=== PATIENT | male | born 1985 | race Hispanic/Latino ===

== ENCOUNTER 2016-08-04 07:50 | Emergency (ER) | payer OTHER ==
[~2016-08-04] VITALS: Ht 177.8 cm; Wt 89.8 kg
[~2016-08-04 07:50] MED LIST: ALLOPURINOL100 MG PO; AMOXICILLIN500 M3 PO; AMOXICILLIN875 M1 PO; ANTIVERT 25 MG25 MG PO; COLCHICINE0.6 M1 AD; INDOMETHACIN50 MG PO; MEDROL DOSEPAK1 PAC PO; NAPROXEN500 MG PO; NORCO 325 MG-51 TAB PO; PERCOCET 325 MG1 TA2 PO; PREDNISONE20 M1 PO; PROAIR HFA8.5 GM INH; TESSALON PERLE100 M1 PO; VICODIN5-300 PO; benadryl/lido/maalox PO
[2016-08-04 07:56] VITALS: BP 141/92
--- NOTE | 2016-08-04 08:18 | ED EAR COMPLAINT ---
History of Present Illness General Chief Complaint: Ear Complaints Stated Complaint: R EAR PAIN Source: patient, family, old records Exam Limitations: no limitations Vital Signs & Intake/Output Vital Signs & Intake/Output Vital Signs Date Time Temp Pulse Resp B/P Pulse O2 O2 Flow FiO2 Ox Delivery Rate 08/04 0836 97.2 08/04 0756 97.2 93 18 141/92 98 Room Air Allergies Coded Allergies: NO KNOWN ALLERGIES (11/04/15) Reconcile Medications Acetaminophen/Hydrocodone Bi (Dysart 325 MG-5 MG) 1 TAB TAB 1 TAB PO Q6HR PRN BREAKTHROUGH PAIN Albuterol Sulfate (Proair Hfa) 8.5 GM HFA.AER.AD 2-4 PUF INH Q4-6 PRN PRN shortness of breath Allopurinol 100 MG TAB 1 TAB PO DAILY PRN GOUT Amoxicillin 875 MG TABLET 1 TAB PO BID sinusitis Amoxicillin 875 MG TABLET 1 TAB PO BID sinusitis, otitis media Amoxicillin 500 MG TABLET 2 TAB PO DAILY STREP THROAT [benadryl/lido/maalox] 15 ML ORAL.SUSP 5 ML PO TID PRN THROAT PAIN SWISH AND SWALLOW 1/3 BENADRYL 1/3 MAALOX 1/3 LIDOCAINE Benzonatate (Tessalon Perle) 100 MG CAPSULE 1 CAP PO TIDPRN cough Colchicine 0.6 MG CAP 1 TAB AD DAILY PRN GOUT 2 TABS PO AT FIRST SIGHT OF PAIN, THEN 1 TAB 1 HOUR LATER, NO TO EXCEED 3 TABS IN ONE HOUR THEN ONE TAB BID NO TO EXCEED TWO TABS IN ONE DAY AFTER DAY ONE HYDROCODONE/ACETAMINOPHEN (Hydrocodon-Acetaminophen 5-325) 1 TAB TAB 1 TAB PO Q6H PRN pain may cause drowsiness HYDROCODONE/ACETAMINOPHEN (Hydrocodon-Acetaminophen 5-325) 1 TAB TAB 1 TAB PO TID PAIN Ibuprofen 800 MG TABLET 1 TAB PO Q6PRN PRN pain Indomethacin 50 MG CAPSULE 1 CAP PO TID PRN PAIN with food Indomethacin 50 MG CAP 1 CAP PO TID PRN gout with food Methylprednisolone. (Medrol) 1 PAC PAC 1 PAC PO TAPER gout Naproxen 500 MG TAB 1 TAB PO BID GOUT Naproxen 500 MG TAB 1 TAB PO BID INFLAMMATION OXYCODONE HCL/ACETAMINOPHEN (Percocet 5-325 MG Tablet) 325 MG/5 MG TAB 1-2 TAB PO Q4-6 PRN PRN PAIN Oxymetazoline HCl (Afrin) 0.05 % SPRAY 2 SPRAY NASB BID sinusitis Prednisone 20 MG TABLET 1 TAB PO BID sinusitis Sulfacetamide Sodium (Bleph-10) 10 % DROPS 2 GTT OPH 4 TIMES/DAY conjunctivitis Tramadol HCl (Ultram) 50 MG TABLET 1-2 TAB PO Q6PRN PRN severe pain Triage Note: PT STATES HE THINKS HE HAS AN EAR INFECTION. PT STATES HIS RIGHT EAR HAS BEEN BOTHERING HIM SINCE. FRIDAY. PT STATES HE HAS SINUS PAIN AND HE THINKS HE HAS PINK EYE IN HIS RIGHT EYE. Triage Nurses Notes Reviewed? yes Onset: 4 days Duration: day(s):, constant, continues in ED, getting worse Timing: recent history Injury Environment: home Severity: severe No Modifying Factors: none HPI: 4 days prior to admission patient complains of nasal congestion decreased hearing in right ear right ear pain right eye discharge sore throat. Denies fever chills nausea vomiting diarrhea abdominal pain chest pain shortness of breath headache dysuria rash bleeding. Past History Travel History Traveled to [place] past 21 day No Medical History Any Pertinent Medical History? see below for history Neurological: NONE EENT: NONE Cardiovascular: NONE Respiratory: NONE Gastrointestinal: pancreatitis Hepatic: NONE Renal: KIDNEY STONES Musculoskeletal: gout Psychiatric: NONE Endocrine: NONE Blood Disorders: NONE Cancer(s): NONE POST ACUTE CARE NURSE/Reproductive: NONE Surgical History Surgical History: non-contributory Psychosocial History What is your primary language Uzbek Tobacco Use: Current Daily Use Daily Tobacco Use Amount/Type: =< 4 Cigarettes daily ETOH Use: denies use Illicit Drug Use: denies illicit drug use Family History Hx Contributory? No Review of Systems Review of Systems Constitutional: Reports: see HPI, malaise. EENTM: Reports: see HPI, eye drainage, ear pain, hearing changes, nasal congestion, throat pain. Respiratory: Reports: no symptoms. Cardiovascular: Reports: no symptoms. GI: Reports: no symptoms. Genitourinary: Reports: no symptoms. Musculoskeletal: Reports: no symptoms. Skin: Reports: no symptoms. Neurological/Psychological: Reports: no symptoms. Hematologic/Endocrine: Reports: no symptoms. Immunologic/Allergic: Reports: no symptoms. All Other Systems: Reviewed and Negative Physical Exam Physical Exam General Appearance: well developed/nourished, alert, awake, anxious, moderate distress Head: atraumatic, normal appearance Eyes: Left: normal appearance. Right: other (corneal injection). Bilateral: PERRL, EOMI. Ears: Left: canal normal, Tympanic normal. Right: Tympanic red, Tympanic bulging. Nose: discharge, sinus tenderness Mouth/Throat: pharynx swelling Neck: normal inspection, supple, full range of motion, lymphadenopathy (R), lymphadenopathy (L) Cardiovascular/Respiratory: normal breath sounds, normal peripheral pulses, regular rate/rhythm, no respiratory distress Back: normal inspection, normal range of motion, no vertebral tenderness Neurologic/Psych: no motor/sensory deficits, awake, alert, oriented x 3, normal gait, normal mood/affect, customer care specialist II-XII nml as tested Skin: intact, normal color, warm/dry Progress Differential Diagnoses I considered the following diagnoses in my evaluation of the patient: Otitis media otitis externa sinusitis Plan of Care: Current Medications Sig/Gerhard Start time Last Medication Dose Stop Time Status Admin Amoxicillin 750 MG ONCE ONE 08/04 829 AC (Amoxil) 08/04 830 Ibuprofen 800 MG ONCE ONE 08/04 829 AC (Motrin) 08/04 830 Oxymetazoline HCl 2 SPRAY ONCE ONE 08/04 829 AC (Afrin) 08/04 830 Initial ED EKG: none Departure Departure Time of Disposition: 818 Disposition: HOME OR SELF CARE Condition: Stable Clinical Impression Primary Impression: Otitis media Qualifiers: Otitis media type: suppurative Laterality: right Chronicity: acute Recurrence: not specified as recurrent Spontaneous tympanic membrane rupture: without spontaneous rupture Qualified Code: H66.001 - Acute suppurative otitis media without spontaneous rupture of ear drum, right ear Secondary Impressions: Conjunctivitis Qualifiers: Conjunctivitis type: acute Acute conjunctivitis type: unspecified Laterality: right Qualified Code: H10.31 - Unspecified acute conjunctivitis, right eye Sinusitis, acute Qualifiers: Sinusitis location: unspecified location Recurrence: not specified as recurrent Qualified Code: J01.90 - Acute sinusitis, unspecified Referrals: PATIENT HAS NO PRIMARY CARE DR (PCP/Family) Departure Forms: Customer Survey General Discharge Information Prescriptions: Current Visit Scripts Amoxicillin 1 TAB PO BID #20 TAB Ibuprofen 1 TAB PO Q6PRN PRN pain #50 TAB Tramadol HCl (Ultram) 1-2 TAB PO Q6PRN PRN severe pain #30 TAB Sulfacetamide Sodium (Bleph-10) 2 GTT OPH 4 TIMES/DAY #5 ML Oxymetazoline HCl (Afrin) 2 SPRAY NASB BID #30 ML
[2016-08-04] MEDS ORDERED: IBUPROFEN800 M1 PO (08:22)
[2016-08-04] MEDS ORDERED: BLEPH-105 ML OPH (08:22)
[2016-08-04] MEDS ORDERED: ULTRAM50 M1 PO (08:22)
[2016-08-04] MEDS ORDERED: AMOXICILLIN875 M1 PO (08:22)
[2016-08-04] MEDS ORDERED: AFRIN30 ML NASB (08:22)
== END 2016-08-04 08:37 ==
LOC: ERH 07:50
DX: H66.91 Otitis media, unspecified, right ear (principal); H10.9 Unspecified conjunctivitis; J32.9 Chronic sinusitis, unspecified; F17.210 Nicotine dependence, cigarettes, uncomplicated

== ENCOUNTER 2016-08-24 19:44 | Emergency (ER) | payer OTHER ==
[~2016-08-24] VITALS: Ht 177.8 cm; Wt 95.3 kg
[~2016-08-24 19:44] MED LIST changes: +AFRIN30 ML NASB; +BLEPH-105 ML OPH; +IBUPROFEN800 M1 PO; +ULTRAM50 M1 PO
[2016-08-24 19:51] VITALS: BP 130/86
--- NOTE | 2016-08-24 20:18 | ED GI/GU/ABDOMINAL COMPLAINT ---
History of Present Illness General Chief Complaint: General Adult Stated Complaint: PT IS HAVING PAIN WT TO [facility] SAID? KIDNEYSTONE Source: patient, old records Exam Limitations: no limitations Vital Signs & Intake/Output Vital Signs & Intake/Output Vital Signs Date Time Temp Pulse Resp B/P Pulse O2 O2 Flow FiO2 Ox Delivery Rate 08/24 1950 97.9 79 16 130/86 97 Room Air Allergies Coded Allergies: NO KNOWN ALLERGIES (11/04/15) Reconcile Medications No Known Home Medications Triage Note: PT TO TRIAGE FOR C/O R FLANK PAIN 03/11, N/V SINCE YESTERDAY. HX OF KIDNEY STONES. PT WENT TO [facility] THIS MORNING, US AND XRAY WAS DONE BUT PT NOT SURE IF THEY FIND ANY KIDNEY STONES. PT WAS DC WITH RX FOR KETOROLAC. PT HERE FOR SECOND OPINION. Triage Nurses Notes Reviewed? yes HPI: Patient is a 31 year old male presents complaining of right upper abdominal pain radiating to RLQ and right back. Pain sudden onset at 0500 this morning. Pain is a sharp pain, currently severe. Patient was seen at [facility] this morning had: RUQ and renal ultrasound, labs, urinalysis. Patient was diagnosed with likely kidney stone and discharged on Toradol. Patient tried to take a dose at 10 am but vomited it up. 6 episodes of vomiting today. Patient has history of kidney stones, but they have always been left sided. (JOSIAS CANTU) Past History Travel History Traveled to [place] past 21 day No Medical History Any Pertinent Medical History? see below for history Neurological: NONE EENT: NONE Cardiovascular: NONE Respiratory: NONE Gastrointestinal: pancreatitis Hepatic: NONE Renal: KIDNEY STONES Musculoskeletal: gout Psychiatric: NONE Endocrine: NONE Blood Disorders: NONE Cancer(s): NONE MANAGER HI/Reproductive: NONE Surgical History Surgical History: non-contributory Psychosocial History What is your primary language Sami Tobacco Use: Current Daily Use Daily Tobacco Use Amount/Type: => 5 Cigarettes daily Family History Hx Contributory? No (JOSIAS CANTU) Review of Systems Review of Systems Constitutional: Denies: chills, fever. EENTM: Reports: no symptoms. Respiratory: Denies: cough, short of breath. Cardiovascular: Denies: chest pain. GI: Reports: see HPI. Genitourinary: Reports: see HPI. Musculoskeletal: Reports: back pain. Skin: Reports: no symptoms. Neurological/Psychological: Reports: no symptoms. Hematologic/Endocrine: Reports: no symptoms. Immunologic/Allergic: Reports: no symptoms. (JOSIAS CANTU) Physical Exam Physical Exam General Appearance: well developed/nourished, alert, awake Head: atraumatic, normal appearance Eyes: Bilateral: normal appearance, PERRL, EOMI. Ears, Nose, Throat, Mouth: hearing grossly normal, moist mucous membrane Neck: normal inspection, supple, full range of motion Respiratory: normal breath sounds, chest non-tender, no respiratory distress, lungs clear Cardiovascular: regular rate/rhythm Gastrointestinal: normal bowel sounds, soft, diffuse right-sided abdominal tenderness Back: normal inspection, normal range of motion, right CVA tenderness Extremities: normal range of motion Neurologic/Psych: no motor/sensory deficits, awake, alert, oriented x 3, normal gait, normal mood/affect Skin: intact, normal color, warm/dry Core Measures ACS in differential dx? No Severe Sepsis Present: No Septic Shock Present: No (JOSIAS CANTU) Progress Differential Diagnosis: biliary colic, cholecystitis, diverticulitis, pyelonephritis, ureterolithiasis, UTI/pyelo Plan of Care: Orders Procedure Date/time Status URINALYSIS 08/24 1957 Complete Laboratory Tests 08/24/162002: Urine Color YEL, Urine Clarity HAZY H, Urine pH 6.0, Ur Specific [place] 1.025, Urine Protein TRACE H, Urine Ketones TRACE H, Urine Nitrite NEG, Urine Bilirubin NEG, Urine Urobilinogen 0.2, Ur Leukocyte Esterase NEG, Ur Microscopic SEDIMENT EXAMINED, Urine RBC 25-50 H, Urine WBC 3-5 H, Ur Epithelial Cells RARE, Hyaline Casts RARE H, Urine Mucus MANY H, Urine Hemoglobin LARGE H, Urine Glucose NEG Patient's pain significantly improved after Toradol and Dilaudid. Results of CT scan discussed with patient. Patient had blood work done at [facility] this morning. Further labs deferred. Patient nontoxic appearing, appears stable to follow up with his urologist, Dr. Valdes, this upcoming week for further evaluation. (JOSIAS CANTU) Diagnostic Imaging: Viewed by Me: CT Scan. Discussed w/RAD: CT Scan. Radiology Impression: PATIENT: WILBERTO IZQUIERDO PRESENT AGE: 31 PATIENT ACCOUNT NO: [id number] : 83 LOCATION: [facility] ORDERING PHYSICIAN: JOSIAS BROWN SERVICE DATE: 08/24/16 EXAM TYPE: CAT - CT ABD & PELVIS W/O IV CONTRAS EXAMINATION: CT ABDOMEN AND PELVIS WITHOUT CONTRAST CLINICAL INFORMATION: Right flank pain. Renal colic. Hematuria. COMPARISON: Multiple priors, most recent CT abdomen/pelvis dated 09/04/2014. TECHNIQUE: Multidetector volumetric imaging was performed from the superior aspect of the liver through the pubic symphysis. Sagittal and coronal reformatted images were obtained on the technologist's workstation. DLP: 348.06 mGy-cm. FINDINGS: LUNG BASES: The visualized lung bases are unremarkable. PERITONEAL CAVITY: No intraperitoneal free air or free fluid. LIVER, GALLBLADDER , AND BILIARY TREE: The liver is normal in size, shape, and attenuation. No focal hepatic lesion or biliary ductal dilatation is present. The gallbladder is unremarkable with no evidence of radiopaque gallstones, gallbladder wall thickening, or obvious pericholecystic inflammatory changes. PANCREAS: Unremarkable. SPLEEN: Unremarkable. ADRENAL GLANDS: Unremarkable. KIDNEYS AND URETERS: The kidneys are normal in size, shape, and attenuation. There is a 2 mm calcification within the proximal right ureter. There is mild right-sided hydronephrosis and perinephric fat stranding. There is no left-sided hydronephrosis or nephrolithiasis. BLADDER: Unremarkable. GASTROINTESTINAL TRACT : No large or small bowel obstruction. Normal appendix. ABDOMINAL WALL: No significant hernia is appreciated. LYMPH NODES: Normal. VASCULAR: No abdominal aortic dilatation. The IVC is unremarkable. PELVIC VISCERA: Unremarkable. OSSEOUS STRUCTURES: No lytic or blastic osseous lesion. IMPRESSION: 1. A 2 mm stone within the proximal right ureter. Mild right-sided hydronephrosis and perinephric fat stranding. No additional nephrolithiasis. 2. No large or small bowel obstruction. Normal appendix. DICTATED BY: ISIDRA JOSHUA MD DATE/TIME DICTATED:08/24/162051 POWER SCREWDRIVER OPERATOR:NATALYA DATE/TIME TRANSCRIBED:2051 CONFIDENTIAL, DO NOT COPY WITHOUT APPROPRIATE AUTHORIZATION. < Electronically signed in Other Vendor System> SIGNED BY: ISIDRA JOSHUA MD 08/24/162107 Initial ED EKG: none (TERRELL BROWN,JOSIAS) Departure Departure Time of Disposition: 2114 Disposition: HOME OR SELF CARE Condition: Stable Clinical Impression Primary Impression: Renal colic on right side Referrals: PATIENT HAS NO PRIMARY CARE DR (PCP/Family) ERASTO VALDES MD Additional Instructions: Follow-up with Dr. Valdes (urologist) this upcoming week for further evaluation. Call on Friday for appointment. Return to the emergency department if unable to say hydrated, fevers, pain uncontrollable, unable to urinate, or worsening of symptoms. Continue taking the Toradol as previously directed. Percocet as directed for severe pain that is not controlled with Toradol. Departure Forms: Customer Survey General Discharge Information Prescriptions: Current Visit Scripts No Known Home Medications (JOSIAS CANTU) PA/DIRECTOR OF EMPLOYEE DEVELOPMENT Co-Sign Statement Statement: ED Attending supervision documentation- [] I saw and evaluated the patient. I have also reviewed all the pertinent lab results and diagnostic results. I agree with the findings and the plan of care as documented in the PA's/DIRECTOR OF EMPLOYEE DEVELOPMENT's documentation. x I have reviewed the ED Record and agree with the PA's/DIRECTOR OF EMPLOYEE DEVELOPMENT's documentation. [] Additions or exceptions (if any) to the PAs/DIRECTOR OF EMPLOYEE DEVELOPMENT's note and plan are summarized below: [] (DONTA DOMÍNGUEZ,ZAINAB)
--- NOTE | 2016-08-24 21:08 | CT SCAN REPORT ---
EXAMINATION: CT ABDOMEN AND PELVIS WITHOUT CONTRAST CLINICAL INFORMATION: Right flank pain. Renal colic. Hematuria. COMPARISON: Multiple priors, most recent CT abdomen/pelvis dated 09/04/2014. TECHNIQUE: Multidetector volumetric imaging was performed from the superior aspect of the liver through the pubic symphysis. Sagittal and coronal reformatted images were obtained on the technologist's workstation. DLP: 348.06 mGy-cm. FINDINGS: LUNG BASES: The visualized lung bases are unremarkable. PERITONEAL CAVITY: No intraperitoneal free air or free fluid. LIVER, GALLBLADDER, AND BILIARY TREE: The liver is normal in size, shape, and attenuation. No focal hepatic lesion or biliary ductal dilatation is present. The gallbladder is unremarkable with no evidence of radiopaque gallstones, gallbladder wall thickening, or obvious pericholecystic inflammatory changes. PANCREAS: Unremarkable. SPLEEN: Unremarkable. ADRENAL GLANDS: Unremarkable. KIDNEYS AND URETERS: The kidneys are normal in size, shape, and attenuation. There is a 2 mm calcification within the proximal right ureter. There is mild right-sided hydronephrosis and perinephric fat stranding. There is no left-sided hydronephrosis or nephrolithiasis. BLADDER: Unremarkable. GASTROINTESTINAL TRACT: No large or small bowel obstruction. Normal appendix. ABDOMINAL WALL: No significant hernia is appreciated. LYMPH NODES: Normal. VASCULAR: No abdominal aortic dilatation. The IVC is unremarkable. PELVIC VISCERA: Unremarkable. OSSEOUS STRUCTURES: No lytic or blastic osseous lesion. IMPRESSION: 1. A 2 mm stone within the proximal right ureter. Mild right-sided hydronephrosis and perinephric fat stranding. No additional nephrolithiasis. 2. No large or small bowel obstruction. Normal appendix.
[2016-08-24] MEDS ORDERED: ZOFRAN ODT4 M1 SL (21:17)
[2016-08-24] MEDS ORDERED: PERCOCET 5-3251 EACH PO (21:17)
== END 2016-08-24 21:45 ==
LOC: ERH 19:44
DX: N23 Unspecified renal colic (principal)
CPT/HCPCS: 74176; 81001; 96374; 96375; J2405

== ENCOUNTER 2016-09-02 18:37 | Emergency (ER) | payer OTHER ==
[~2016-09-02 18:37] MED LIST changes: +PERCOCET 5-3251 EACH PO; +ZOFRAN ODT4 M1 SL
[2016-09-02 19:04] VITALS: BP 144/96
[2016-09-02 19:15] LABS: ABSOLUTE BASOPHIL COUNT 0.1 /CUMM (0.0-0.2); ABSOLUTE EOSINOPHIL COUNT 0.1 /CUMM (0.0-0.7); ABSOLUTE GRANULOCYTE CT 5.2 /CUMM (1.4-6.5); ABSOLUTE LYMPH COUNT 2.2 /CUMM (1.2-3.4); ABSOLUTE MONOCYTE COUNT 0.4 /CUMM (0.10-0.60); BASOPHIL % 0.8 % (0.0-2.0); EOSINOPHIL % 0.8 % (0-5); GRANULOCYTE % 65.4 % (42.2-75.2); MEAN CORPUSCULAR HGB 31.5 PG (27.0-31.0); MEAN CORPUSCULAR HGB CONC 33.9 G/DL (33.0-37.0); MEAN CORPUSCULAR VOLUME 93.1 FL (80.0-94.0); PLATELET COUNT 222 /CUMM (130-400); RBC DISTRIBUTION WIDTH 12.8 % (11.5-14.5); RED BLOOD CELL CT 4.51 /CUMM (4.70-6.10)
--- NOTE | 2016-09-02 20:03 | ED GI/GU/ABDOMINAL COMPLAINT ---
History of Present Illness General Chief Complaint: Abdominal Pain/Flank Pain Stated Complaint: "I HAVE KIDNEY STONES" Source: patient, family, old records Exam Limitations: no limitations Vital Signs & Intake/Output Vital Signs & Intake/Output Vital Signs Date Time Temp Pulse Resp B/P Pulse O2 O2 Flow FiO2 Ox Delivery Rate 09/03 1903 98.2 101 22 144/96 97 Allergies Coded Allergies: NO KNOWN ALLERGIES (11/04/15) Reconcile Medications No Known Home Medications Triage Note: PER PT HERE WITH KIDNEY STONES, NOW WITH PAIN TO RT SIDE WHEN I URINATE FEELS LIKE IT SCRAPING. Triage Nurses Notes Reviewed? yes HPI: Patient has a known kidney stone on the right side. Patient is waiting to see Dr. Trinidad. Patient became concerned because when the pain intensifies his right testicle contracts and gives him a crampy feeling in the right testicle. Once the pain subsides from his right flank his testicle also relaxes and the pain goes away. Since the patient has been unable to see the urologist he became concerned to want to come in for evaluation. Currently there is no pain. When he has the pain is in the right flank radiating into the right testicle. There are no aggravating factors and the pain medication helps resolve the pain. At its worst the pain is 1010 and is currently 0 out of 10. The pain is crampy and colicky in nature. Past History Travel History Traveled to [place] past 21 day No Medical History Any Pertinent Medical History? see below for history Neurological: NONE EENT: NONE Cardiovascular: NONE Respiratory: NONE Gastrointestinal: pancreatitis Hepatic: NONE Renal: KIDNEY STONES Musculoskeletal: gout Psychiatric: NONE Endocrine: NONE Blood Disorders: NONE Cancer(s): NONE MICROSOFT DYNAMICS DEVELOPER/Reproductive: NONE Surgical History Surgical History: non-contributory Psychosocial History What is your primary language Chinese Tobacco Use: Current Daily Use Daily Tobacco Use Amount/Type: => 5 Cigarettes daily ETOH Use: occasional use Illicit Drug Use: denies illicit drug use Family History Hx Contributory? No Review of Systems Review of Systems Constitutional: Reports: no symptoms. Respiratory: Reports: no symptoms. Cardiovascular: Reports: no symptoms. GI: Reports: no symptoms. Genitourinary: Reports: see HPI. Musculoskeletal: Reports: see HPI, back pain. Neurological/Psychological: Reports: no symptoms. Immunologic/Allergic: Reports: no symptoms. Physical Exam Physical Exam General Appearance: well developed/nourished, alert, awake, anxious, mild distress Eyes: Bilateral: PERRL, EOMI. Respiratory: normal breath sounds, chest non-tender, no respiratory distress, lungs clear Cardiovascular: regular rate/rhythm, normal peripheral pulses Gastrointestinal: normal bowel sounds, soft, non-tender, no organomegaly Male Genitals: normal genitalia, normal cremaster reflex, THERE ARE NO MASSES OR SWELLING. tHERE IS NORMAL CREMASTERIC REFLEX. tHERE IS NO HERNIA. tHERE IS NO EVIDENCE OF TESTICULAR TORSION. Extremities: normal range of motion Neurologic/Psych: no motor/sensory deficits, awake, alert, oriented x 3, normal gait, normal mood/affect Core Measures ACS in differential dx? No Severe Sepsis Present: No Septic Shock Present: No Progress Differential Diagnosis: testicular torsion, ureterolithiasis Plan of Care: Orders Procedure Date/time Status XRY-KIDNEYS, URETERS, BLADDER 09/03 1939 Active URINALYSIS 09/02 1905 Complete COMPREHENSIVE METABOLIC PANEL 09/02 1905 Complete CBC WITHOUT DIFFERENTIAL 09/02 1905 Complete Laboratory Tests 09/02/161919: Urine Color YEL, Urine Clarity CLEAR, Urine pH 6.0, Ur Specific [place] 1.020, Urine Protein NEG, Urine Ketones NEG, Urine Nitrite NEG, Urine Bilirubin NEG, Urine Urobilinogen 0.2, Ur Leukocyte Esterase NEG, Ur Microscopic SEDIMENT EXAMINED, Urine RBC RARE, Urine WBC 1-3 H, Urine Bacteria RARE H, Hyaline Casts 1-3 H, Urine Mucus RARE, Urine Hemoglobin TRACE-INTACT H, Urine Glucose NEG 09/02/161909: Anion Gap 14, Estimated GFR > 60, BUN/Creatinine Ratio 11.7, Glucose 98, Calcium 9.1, Total Bilirubin 1.5 H, AST 18, ALT 32, Alkaline Phosphatase 52, Total Protein 7.5, Albumin 4.4, Globulin 3.1, Albumin/Globulin Ratio 1.4, CBC w Diff NO MAN DIFF REQ, RBC 4.51 L, MCV 93.1, MCH 31.5 H, RDW 12.8, MPV 8.0, Gran % 65.4, Lymphocytes % 27.4, Monocytes % 5.6, Eosinophils % 0.8, Basophils % 0.8, Absolute Granulocytes 5.2, Absolute Lymphocytes 2.2, Absolute Monocytes 0.4, Absolute Eosinophils 0.1, Absolute Basophils 0.1, PUBS MCHC 33.9 Initial ED EKG: none Departure Departure Disposition: HOME OR SELF CARE Condition: Stable Clinical Impression Primary Impression: Testicular pain, right Referrals: PATIENT HAS NO PRIMARY CARE DR (PCP/Family) ERASTO TRINIDAD MD Additional Instructions: follow up with dr. trinidad return for any cocnerns Departure Forms: Customer Survey General Discharge Information Prescriptions: Current Visit Scripts No Known Home Medications
== END 2016-09-02 20:08 ==
LOC: ERH 18:37
PROVIDERS: Emergency Medicine
DX: N50.811 Right testicular pain (principal)
CPT/HCPCS: 81001